=== PATIENT | female | born 1970 | race Caucasian/White ===

== ENCOUNTER 2016-10-08 09:06 | Day surgery (SDC) | payer OTHER ==
[~2016-10-08] VITALS: Ht 170.2 cm; Wt 94.5 kg
[~2016-10-08 09:06] MED LIST: CLARITIN,ALAVAR10 MG PO; DIFLUCAN150 MG PO; LYRICA50 MG PO; ULTRAM50 MG PO; VALIUM5 MG PO; XANAX0.25 MG PO
== END 2016-10-08 11:53 | disposition home or self-care (01) ==
LOC: PAIN 09:06 → SDC 10:00 → PAIN 11:53
DX: M54.17 Radiculopathy, lumbosacral region (principal); M51.36 Other intervertebral disc degeneration, lumbar region; M51.26 Other intervertebral disc displacement, lumbar region; M48.06 Spinal stenosis, lumbar region; F41.1 Generalized anxiety disorder; M96.1 Postlaminectomy syndrome, not elsewhere classified; R20.0 Anesthesia of skin
CPT/HCPCS: J1100; J2250

== ENCOUNTER → 2017-01-21 | Outpatient (CLI) | payer OTHER | END | disposition home or self-care (01) | DX: R13.10 Dysphagia, unspecified (principal); Z98.84 Bariatric surgery status | CPT/HCPCS: 92611 GN ==

== ENCOUNTER 2017-02-25 08:55 | Day surgery (SDC) | payer OTHER ==
[~2017-02-25] VITALS: Ht 170.2 cm; Wt 122.5 kg
== END 2017-02-25 11:03 | disposition home or self-care (01) ==
LOC: PAIN 08:55
PROC: 3E0S33Z Introduction of Anti-inflammatory into Epidural Space, Percutaneous Approach (ICD-10-PCS; principal; 2017-02-25)
DX: M50.13 Cervical disc disorder with radiculopathy, cervicothoracic region (principal); F41.9 Anxiety disorder, unspecified; M50.20 Other cervical disc displacement, unspecified cervical region; M96.1 Postlaminectomy syndrome, not elsewhere classified; Z98.84 Bariatric surgery status; F32.9 Major depressive disorder, single episode, unspecified; J30.9 Allergic rhinitis, unspecified; Z87.891 Personal history of nicotine dependence; E66.9 Obesity, unspecified; Z68.41 Body mass index [BMI] 40.0-44.9, adult; Z88.6 Allergy status to analgesic agent; Z88.1 Allergy status to other antibiotic agents; Z88.0 Allergy status to penicillin; Z91.040 Latex allergy status
CPT/HCPCS: J1030; J2250; J3010

== ENCOUNTER 2017-05-04 10:18 | Day surgery (SDC) | payer OTHER ==
[~2017-05-04] VITALS: Ht 170.2 cm; Wt 122.4 kg
== END 2017-05-04 11:19 | disposition home or self-care (01) ==
LOC: PAIN 10:18 → SDC 11:00 → PAIN 11:19
DX: M50.123 Cervical disc disorder at C6-C7 level with radiculopathy (principal); M25.78 Osteophyte, vertebrae; M48.06 Spinal stenosis, lumbar region; M54.5 Low back pain; M96.1 Postlaminectomy syndrome, not elsewhere classified; E66.9 Obesity, unspecified; Z68.41 Body mass index [BMI] 40.0-44.9, adult; F41.8 Other specified anxiety disorders; Z87.891 Personal history of nicotine dependence; Z98.84 Bariatric surgery status; Z88.0 Allergy status to penicillin
CPT/HCPCS: J1030; J2250; J3010

== ENCOUNTER → 2017-05-05 | Outpatient (CLI) | payer OTHER | END | disposition home or self-care (01) | LOC: CDC 12:22 | DX: Z01.810 Encounter for preprocedural cardiovascular examination (principal) | CPT/HCPCS: 93000 ==

== ENCOUNTER 2017-09-30 19:16 | Emergency (ER) | payer OTHER ==
[~2017-09-30] VITALS: Ht 167.6 cm; Wt 127.6 kg
[2017-09-30] MEDS ORDERED: ZOFRAN4 MG SL (21:40)
[2017-09-30] MEDS ORDERED: FLEXERIL10 MG PO (21:41)
[2017-09-30 22:14] VITALS: BP 136/89
== END 2017-09-30 22:16 | disposition home or self-care (01) ==
LOC: EME 19:16
DX: S06.0X0A Concussion without loss of consciousness, initial encounter (principal); M62.838 Other muscle spasm; W22.09XA Striking against other stationary object, initial encounter; Y92.89 Other specified places as the place of occurrence of the external cause; Z91.040 Latex allergy status; Z88.6 Allergy status to analgesic agent; Z88.0 Allergy status to penicillin
CPT/HCPCS: 99281; 99284

== ENCOUNTER 2018-01-06 09:48 | Day surgery (SDC) | payer OTHER ==
[~2018-01-06] VITALS: Ht 167.6 cm; Wt 124.7 kg
[~2018-01-06 09:48] MED LIST changes: +FLEXERIL10 MG PO; +FLONASE ALLERG9.9 ML BOTH NARES; +VITAMIN B-121000 MC4 SL; +ZOFRAN4 MG SL
== END 2018-01-06 11:35 | disposition home or self-care (01) ==
LOC: PAIN 09:48 → SDC 10:30 → PAIN 10:30
DX: M50.11 Cervical disc disorder with radiculopathy, high cervical region (principal); M96.1 Postlaminectomy syndrome, not elsewhere classified; M79.1 Myalgia; I10 Essential (primary) hypertension; F41.8 Other specified anxiety disorders; Z88.0 Allergy status to penicillin; Z87.891 Personal history of nicotine dependence
CPT/HCPCS: J1100; J2250

== ENCOUNTER 2018-02-10 08:54 | Day surgery (SDC) | payer OTHER ==
[~2018-02-10] VITALS: Ht 167.6 cm; Wt 124.7 kg
== END 2018-02-10 10:20 | disposition home or self-care (01) ==
LOC: PAIN 08:54 → SDC 09:15 → PAIN 10:20
DX: M50.20 Other cervical disc displacement, unspecified cervical region (principal); M54.12 Radiculopathy, cervical region; M79.1 Myalgia; M62.838 Other muscle spasm; Z87.891 Personal history of nicotine dependence; Z98.84 Bariatric surgery status; Z88.0 Allergy status to penicillin; Z88.1 Allergy status to other antibiotic agents; Z88.6 Allergy status to analgesic agent; Z91.040 Latex allergy status
CPT/HCPCS: J1100; J2250